=== PATIENT | female | born 1995 | race Caucasian/White ===

== ENCOUNTER 2016-11-12 13:56 | Emergency (ER) | payer OTHER ==
[~2016-11-12 13:56] MED LIST: ALBUTEROL17 GM INH; BACTRIM DS TABL1 TA1 PO; BENADRYL ALLERG25 M1 PO; BENZONATATE PO; CELEXA; ELIMITE60 GM TOP; FAMCICLOVIR500 MG PO; FLEXERIL10 M1 PO; IBUPROFEN PO; IBUPROFEN800 MG PO; KEFLEX500 M2 PO; MEDROL DOSEPAK4 MG PO; NAPROSYN250 M1 PO; NO MEDICATIONS; NORCO1 TAB 10/3 PO; PEPCID PO; PHENERGAN PO; PYRIDIUM PO; VISTARIL PO; VOLTAREN50 MG PO
[2016-11-12] MEDS ORDERED: NO MEDICATIONS (14:07)
[2016-11-12 14:39] LABS: URINE SOURCE CLEAN CATCH
[2016-11-12 14:41] LABS: URINE APPEARANCE SL CLOUDY; URINE BILIRUBIN NEG (NEG); URINE BLOOD NEG (NEG); URINE COLOR YELLOW; URINE GLUCOSE NEG (NORM); URINE KETONE NEG (NEG); URINE LEUKOCYTE ESTERASE 2+ (NEG); URINE NITRATE NEG (NEG); URINE PH 5.5 (5-8); URINE PROTEIN NEG (NEG); URINE SPECIFIC GRAVITY 1.025 (1.003-1.035); URINE UROBILINOGEN 0.2 MG/DL (NORM)
[2016-11-12 14:44] LABS: MICRO INDICATED? YES
[2016-11-12 14:58] LABS: CULTURE INDICATED? YES; URINE BACTERIA 1+ (NEG); URINE RBC 0-2 /[HPF] (0-2); URINE SQUAMOUS EPITHELIAL CELL FEW /[HPF]
== END 2016-11-12 17:18 | disposition home or self-care (01) ==
LOC: SED 13:56
PROVIDERS: Emergency Medicine
DX: K52.9 Noninfective gastroenteritis and colitis, unspecified (principal); N30.90 Cystitis, unspecified without hematuria; F17.200 Nicotine dependence, unspecified, uncomplicated
CPT/HCPCS: 81003; 84703; 87086; 96365; 96375; 99284; J0696; J2405

== ENCOUNTER 2017-02-19 09:25 | Emergency (ER) | payer OTHER ==
[2017-02-19 12:04] LABS: URINE SOURCE CLEAN CATCH
[2017-02-19 12:05] LABS: URINE APPEARANCE CLEAR; URINE BILIRUBIN NEG (NEG); URINE BLOOD NEG (NEG); URINE COLOR YELLOW; URINE GLUCOSE NEG (NORM); URINE KETONE NEG (NEG); URINE LEUKOCYTE ESTERASE 2+ (NEG); URINE NITRATE NEG (NEG); URINE PROTEIN NEG (NEG); URINE SPECIFIC GRAVITY 1.015 (1.003-1.035); URINE UROBILINOGEN 0.2 MG/DL (NORM)
[2017-02-19 12:06] LABS: MICRO INDICATED? YES
[2017-02-19 12:37] LABS: CULTURE INDICATED? YES; URINE BACTERIA 1+ (NEG); URINE RBC 0-2 /[HPF] (0-2); URINE SQUAMOUS EPITHELIAL CELL OCCAS /[HPF]
== END 2017-02-19 13:02 | disposition home or self-care (01) ==
LOC: SED 09:25
PROVIDERS: Emergency Medicine
DX: R51 Headache (principal); R11.2 Nausea with vomiting, unspecified; F17.210 Nicotine dependence, cigarettes, uncomplicated
CPT/HCPCS: 81003; 87086; 99284

== ENCOUNTER 2017-03-13 12:02 | Emergency (ER) | payer OTHER ==
[~2017-03-13] VITALS: Ht 165.1 cm; Wt 102.5 kg
== END 2017-03-13 12:37 | disposition home or self-care (01) ==
LOC: SED 12:02
DX: J40 Bronchitis, not specified as acute or chronic (principal); H92.03 Otalgia, bilateral; F17.200 Nicotine dependence, unspecified, uncomplicated; Z98.890 Other specified postprocedural states
CPT/HCPCS: 99283